=== PATIENT | female | born 1955 | race Caucasian/White ===

== ENCOUNTER 2020-09-11 07:54 | Inpatient (IN) | payer BC ==
[~2020-09-11] VITALS: Ht 167.6 cm; Wt 109.2 kg
[2020-09-11] VITALS (10 sets, daily range): BP systolic 105–127; BP diastolic 41–80
[~2020-09-11 07:54] MED LIST: ASCO500T11 PO; CINN500T PO; FER300LQ PO; GLIP10TA9 PO; LOSA-69 PO; MELO1TAB56 PO; METF-370 PO; METH1CHW PO; METO25TA5 PO; TURM1TAB PO
[2020-09-11] MEDS ORDERED: ceFAZolin 1GM/50ML 100 ML IV ONE (08:42)
[2020-09-11] MEDS ORDERED: TRANEXAMIC ACID 20 ML ONE (09:01)
[2020-09-11] MEDS ORDERED: VANCOMYCIN HCL 1000 MG VL ONE (09:03)
[2020-09-11] MEDS ORDERED: PHENYLEPHRINE HCL 10 MG/ML VL IV ONE (10:31)
[2020-09-11] MEDS ORDERED: GLYCOPYRROLATE 0.2 MG/ML 1ML VIAL IV ONE (10:31)
[2020-09-11] MEDS ORDERED: fentaNYL CITRATE 100 MCG/2 ML VL ONE (10:31)
[2020-09-11] MEDS ORDERED: MIDAZOLAM HCL 2MG/2ML 2ml VIAL (1mg/ml) ONE ×2 (10:31→11:02)
[2020-09-11] MEDS ORDERED: DexAMETHasone SOD PHOS 10MG/1ML VIAL INJ IV ONE (10:31)
[2020-09-11] MEDS ORDERED: MORPHINE SULF(PF) 0.5MG/ML 10ML VIAL ONE (10:31)
[2020-09-11] MEDS ORDERED: PROPOFOL 10 MG/ML 20 ML IV ONE (10:32)
[2020-09-11] MEDS ORDERED: TETRACAINE 1% INJ 2 ML VIAL IJ ONE (10:32)
[2020-09-11] MEDS ORDERED: diphenhdrAMINE HCL 50 MG/1 ML VL IV PRN (11:15)
[2020-09-11] MEDS ORDERED: HYDROmorphone HCL 2 MG/ML VL IV PRN ×2 (11:15→13:00)
[2020-09-11] MEDS ORDERED: NALOXONE HCL 0.4 MG/ML VIAL IV PRN (11:15)
[2020-09-11] MEDS ORDERED: ePHEDrine SULFATE 50 MG/ML AMP IV PRN (11:15)
[2020-09-11] MEDS ORDERED: ONDANSETRON HCL 4 MG/2 ML VIAL IV PRN (11:15)
[2020-09-11] MEDS ORDERED: LABETALOL HCL 5 MG/ML 4ML SYRINGE IV PRN (11:15)
[2020-09-11] MEDS ORDERED: DexAMETHasone SOD PHOS 10MG/1ML VIAL INJ IV PRN (11:15)
[2020-09-11] MEDS ORDERED: NALBUPHINE HCL 10 MG/1ml INJECTION SUBCUT ONE (11:15)
[2020-09-11] MEDS ORDERED: oxyCODONE HCL 5MG TAB PO PRN ×2 (13:00)
[2020-09-11] MEDS ORDERED: ACETAMINOPHEN 325 MG TAB PO PRN (13:00)
[2020-09-11] MEDS: D5W/LACTATED RINGERS 1,000 ML IV SCH ×2 (13:29→23:08)
[2020-09-11] MEDS ORDERED: ceFAZolin 2 GM in D5W 5% 100 ML IV SCH (17:00)
[2020-09-11] MEDS: KETOROLAC TROMETH 30 MG/ML 1ML VIAL IV SCH (18:50)
[2020-09-11] MEDS: ACETAMINOPHEN 325 MG TAB PO SCH (18:51)
[2020-09-11] MEDS: ceFAZolin 2 GM in D5W 5% 100 ML IV SCH (19:04)
[2020-09-11] MEDS: ASPirin 81 mg TAB PO SCH (21:36)
[2020-09-11] MEDS: LOSARTAN POTASSIUM 50 MG TAB PO SCH (21:37)
[2020-09-11] MEDS: PREGABALIN 25 MG CAP PO SCH (21:38)
[2020-09-11] MEDS: metFORMIN HYDROCHLORIDE 500 MG TAB PO SCH (21:38)
[2020-09-12] VITALS (18 sets, daily range): BP systolic 103–134; BP diastolic 56–65
[2020-09-12] MEDS: KETOROLAC TROMETH 30 MG/ML 1ML VIAL IV SCH ×3 (00:13→12:00)
[2020-09-12] MEDS: ACETAMINOPHEN 325 MG TAB PO SCH ×3 (00:13→12:00)
[2020-09-12] MEDS: ceFAZolin 2 GM in D5W 5% 100 ML IV SCH (03:15)
[2020-09-12] MEDS: ASPirin 81 mg TAB PO SCH (09:06)
[2020-09-12] MEDS: PREGABALIN 25 MG CAP PO SCH (09:07)
[2020-09-12] MEDS: metFORMIN HYDROCHLORIDE 500 MG TAB PO SCH (09:08)
[2020-09-12] MEDS: LOSARTAN POTASSIUM 50 MG TAB PO SCH (09:09)
[2020-09-12] MEDS ORDERED: METOPROLOL TARTRATE 25 MG TAB PO SCH (10:00)
[2020-09-12] MEDS: D5W/LACTATED RINGERS 1,000 ML IV SCH (10:47)
[2020-09-12 12:02] LABS: Basophils # (auto) 0 10 ^3/uL (0-0.2); Basophils % (auto) 0.2 % (0.0-2.0); Hemoglobin 8.4 g/dL (12.2-16.2); Lymphocytes # (auto) 0.6 10 ^3/uL (0.4-5.4); Nucleated Red Blood Cells % 0.1 %; Red Cell Distribution Width 14.7 % (11.8-14.3)
[2020-09-12 12:05] LABS: Eosinophils # (auto) 0.1 10 ^3/uL (0-0.8); Eosinophils % (auto) 1.5 % (0.0-7.0); Hematocrit 26.1 % (36.0-46.0); Lymphocytes % (auto) 6.1 % (10.0-50.0); Mean Corpuscular Hgb Conc. 32.1 g/dL (32.0-36.0); Mean Corpuscular Volume 68.7 fL (80.0-100.0); Monocytes # (auto) 0.1 10 ^3/uL (0-1.3); Monocytes % (auto) 1.5 % (0.0-12.0); Neutrophils # (auto) 9.1 10 ^3/uL (1.6-8.6); Neutrophils % (auto) 90.7 % (37.0-80.0)
[2020-09-12 12:32] LABS: BUN/Creatinine Ratio 17.9; Calcium 8.3 mg/dL (8.5-10.1)
[2020-09-12] MEDS ORDERED: FERROUS SULFATE 325mg EC TAB PO SCH (18:00)
[2020-09-13] MEDS ORDERED: ASCORBIC ACID PO SCH (10:00)
== END 2020-09-12 16:43 | disposition home or self-care (01) | DRG 489 ==
LOC: SUR 07:54 → TELE 12:49 → TELE-WESTW 16:13
PROVIDERS: ADMIT Orthopaedic Surgery; ATTEND Orthopaedic Surgery
PROC: 0SUW09Z Supplement Left Knee Joint, Tibial Surface with Liner, Open Approach (ICD-10-PCS; 2020-09-11)
PROC: 0SPD09Z Removal of Liner from Left Knee Joint, Open Approach (ICD-10-PCS; principal; 2020-09-11 10:41)
DX: M25.362 Other instability, left knee (principal); Z20.822 Contact with and (suspected) exposure to COVID-19; Z96.652 Presence of left artificial knee joint; E11.22 Type 2 diabetes mellitus with diabetic chronic kidney disease; I12.9 Hypertensive chronic kidney disease with stage 1 through stage 4 chronic kidney disease, or unspecified chronic kidney disease; N18.9 Chronic kidney disease, unspecified; Z80.0 Family history of malignant neoplasm of digestive organs; Z83.3 Family history of diabetes mellitus; Z79.899 Other long term (current) drug therapy
CPT/HCPCS: 36415; 73562; 80048; 82962; 85025; 86850; 86900; 86901; 97163; G0378; J0690; J1100; J1885; J2250; J2704; J7060